=== PATIENT | female | born 1990 | race Caucasian/White ===

== ENCOUNTER → 2017-09-07 14:36 | Outpatient (CLI) | payer SELFPAY ==
[2017-09-07 16:38] LABS: Absolute Lymphocyte Count 2.14 X10^3/ul (0.83-4.51); Absolute Neutrophil Count 5.6 X10^3/uL (2.0-7.7); Basophil# 0.01 X10^3/uL; Basophil% 0.1 % (0-1); Eosinophil# 0.09 X10^3/uL; Eosinophils% 1.1 % (0-5); Hematocrit 36.8 % (37-47); Hemoglobin 12.1 g/dl (12.0-15.0); Lymphocyte # 2.14 X10^3/ul (4.0); Lymphocyte % 25.4 % (19-41); Mean Corp Hgb Conc 32.9 g/gl (32-36); Mean Corpuscular Volume 94.4 fL (81-99); Mean Platelet Vol. 9.8 fl (6.2-12.0); Monocyte# 0.64 X10^3/uL; Monocyte% 7.6 % (0-10); Neutrophil # 5.55 X10^3/uL (2.7-7.7); Neutrophil % 65.8 % (47-70); Platelet Count 307 K/mm3 (150-450); RBC Distribution Width CV 13.2 % (11.6-14.6); RBC Distribution Width SD 45.2 fl (35.1-43.9); White Blood Count 8.4 K/mm3 (4.4-11.0)
[2017-09-07 16:39] LABS: POSITIVE COUNT NO; POSITIVE DIFFERENTIAL NO; POSITIVE MORPHOLOGY NO
[2017-09-07 18:06] LABS: HIV - WCH Non-Reactive (Nonreactive); Rubella IgG 28.2 IU/mL
[2017-09-09 01:51] LABS: Rapid Plasmin Reagin (RPR) NONREACTIVE (NONREACTIVE)
[2017-09-09 11:13] LABS: HEPATITIS B SURFACE AG Negative (Negative)
== END ==
PROVIDERS: Visit Provider Obstetrics & Gynecology
DX: Z34.82 Encounter for supervision of other normal pregnancy, second trimester (principal); Z3A.00 Weeks of gestation of pregnancy not specified
CPT/HCPCS: 36415; 85025; 86592; 86703; 86762; 86850; 86900; 87086; 87340; 87491; 87591

== ENCOUNTER → 2017-09-07 19:01 | Outpatient (CLI) | payer SELFPAY ==
[2017-09-07 20:46] LABS: Chlamydia Trachomatis by PCR Negative (Negative); Neisserai gonorrhoeae by PCR Negative (Negative); Probe Check PASS; Sample Adequacy Control PASS; Specimen Processing Control PASS
[2017-09-11 15:36] LABS: HPV Reflexed? NOT INDICATED
== END ==
PROVIDERS: Visit Provider Obstetrics & Gynecology
DX: Z34.82 Encounter for supervision of other normal pregnancy, second trimester (principal); Z12.4 Encounter for screening for malignant neoplasm of cervix; Z3A.00 Weeks of gestation of pregnancy not specified
CPT/HCPCS: 87086; 87088; 87491; 87591; 88175; G0145

== ENCOUNTER → 2017-10-11 12:19 | Outpatient (CLI) | payer SELFPAY ==
--- NOTE | 2017-10-11 12:21 | US_ITS ---
STUDY: SECOND AND THIRD TRIMESTER OBSTETRICAL ULTRASOUND REASON FOR EXAM: Female, 26 years old. Follow-up anatomy. LMP: June 01, 2017 TECHNIQUE: Transabdominal PRIOR ULTRASOUND: None. FINDINGS: There is a single intrauterine fetus. The fetus is in an transverse lie with the head on the maternal left side. There is demonstrated cardiac activity with a heart rate of 163 bpm. There is a normal amniotic fluid volume. The largest amniotic fluid pocket measures 6.8 x 3.2 cm. The amniotic fluid index (VALENTINO) is 12 cm. The placenta is anterior and low lying but not previa in location. There are Grade 1 placental changes. The cervix measures 4.4 cm in length. The bilateral adnexal regions are normal. BIOMETRY: BPD: 4: 18 weeks, 2 days HC: 15.8: 18 weeks, 5 days AC: 13.1: 18 weeks, 5 days FL: 2.8: 18 weeks, 6 days age by current US: 18 weeks, 5 days. DEREK by current US: March 09, 2018. Estimated weight: 253 grams, +/- 37 grams, 36 %. Age by LMP: 18 weeks, 6 days. DEREK by LMP: March 08, 2018. ANATOMY: Gender: Cranium: Normal lateral ventricles. Normal choroid plexus. Normal cerebellum. Normal cisterna magna. Normal face, nose and lips. Chest: Normal 4-chamber heart. Abdomen/Pelvis: Normal diaphragm. Normal stomach. Normal abdominal wall. Normal cord insertion. Normal 3 vessel cord. Normal kidneys. Normal bladder. Spine: Normal cervical spine. Normal thoracic spine. Normal lumbar spine. Evaluation of the spine is difficult due to previous young age. Extremities: Normal bilateral upper extremities. Normal bilateral lower extremities. US/OB Anatomy Scan IMPRESSION: age by current US: 18 weeks, 5 days. DEREK by current US: March 09, 2018. Estimated weight: 253 grams, +/- 37 grams, 36 %. The placenta is low lying. Follow-up is recommended. Electronically Signed: Chase Colin MD at 13:10 EDT Tel , Service support ,
== END ==
PROVIDERS: Nurse Practitioner Women's Health; Visit Provider Obstetrics & Gynecology
DX: Z34.90 Encounter for supervision of normal pregnancy, unspecified, unspecified trimester (principal); Z3A.18 18 weeks gestation of pregnancy; Z84.89 Family history of other specified conditions
CPT/HCPCS: 76805

== ENCOUNTER → 2017-12-13 09:05 | Outpatient (CLI) | payer SELFPAY ==
[2017-12-13 09:57] LABS: Absolute Lymphocyte Count 1.48 X10^3/ul (0.83-4.51); Absolute Neutrophil Count 5.9 X10^3/uL (2.0-7.7); Basophil# 0.01 X10^3/uL; Basophil% 0.1 % (0-1); Eosinophil# 0.05 X10^3/uL; Eosinophils% 0.6 % (0-5); Hematocrit 31.6 % (37-47); Hemoglobin 10.6 g/dl (12.0-15.0); Lymphocyte # 1.48 X10^3/ul (4.0); Lymphocyte % 18.7 % (19-41); Mean Corp Hgb Conc 33.5 g/gl (32-36); Mean Corpuscular Volume 95.5 fL (81-99); Mean Platelet Vol. 9.5 fl (6.2-12.0); Monocyte# 0.45 X10^3/uL; Monocyte% 5.7 % (0-10); Neutrophil # 5.93 X10^3/uL (2.7-7.7); Neutrophil % 74.8 % (47-70); POSITIVE COUNT NO; POSITIVE DIFFERENTIAL NO; POSITIVE MORPHOLOGY NO; Platelet Count 253 K/mm3 (150-450); RBC Distribution Width CV 13.3 % (11.6-14.6); RBC Distribution Width SD 44.4 fl (35.1-43.9); Red Blood Count 3.31 M/mm3 (4.2-5.4); White Blood Count 7.9 K/mm3 (4.4-11.0)
[2017-12-13 10:41] LABS: Glucose Challenge Gest 1H 50g 142 mg/dL (70-140)
== END ==
PROVIDERS: Visit Provider Obstetrics & Gynecology
DX: Z34.82 Encounter for supervision of other normal pregnancy, second trimester (principal)
CPT/HCPCS: 36415; 82950; 85025

== ENCOUNTER → 2017-12-27 08:17 | Outpatient (CLI) | payer SELFPAY ==
--- NOTE | 2017-12-27 08:17 | DT_ITS ---
This patient was seen during an EMR downtime December 24, 2017 - December 31, 2017. This patient may have a combination of paper and electronic documentation or all paper documentation. All documentation is viewable within the e-chart portion of [employer] for each patient visit.
--- NOTE | 2017-12-27 08:19 | US_ITS ---
STUDY: SECOND AND THIRD TRIMESTER OBSTETRICAL ULTRASOUND - LIMITED REASON FOR EXAM: Female, 27 years old. History of low lying placenta LMP: 06/01/2017 PRIOR ULTRASOUND: 10/11/2017 TECHNIQUE: Transabdominal and transvaginal ultrasound evaluation was performed. FINDINGS: There is a single intrauterine fetus. The fetus is in a cephalic presentation. There is demonstrated cardiac activity with a heart rate of 153 bpm. There is a normal amniotic fluid volume. The largest amniotic fluid pocket measures 4.1 cm. The amniotic fluid index (VALENTINO) is 11.7 cm. The placenta is anterior in location. Previous study showed placenta previa. This has resolved. On today's study, the placenta is 5.9 cm away from the os. There is no sonographic evidence of placenta accreta. There are Grade 1 placental changes. The cervix measures 3.6 cm in length. BIOMETRY: BPD: 7.35 cm: 29 weeks, 4 days HC: 28.12 cm: 30 weeks, 6 days AC: 25.86 cm: 30 weeks, 1 days FL: 5.55 cm: 29 weeks, 2 days Age by LMP: 29 weeks, 6 days. DEREK by LMP: 03/08/2018. age by prior US: 18 weeks, 5 days. DEREK by prior US: 03/09/2018. age by current US: 30 weeks, 0 days. DEREK by current US: 03/07/2018. Estimated weight: 1458 grams, +/- 213 grams, 35 percentile. Gender: Indeterminant US/OB Limited With Biometrics IMPRESSION: Single live intrauterine at 30 weeks, 0 days by current ultrasound with DEREK of 03/07/2018. Heart rate of 153 bpm. No suspicious sonographic findings. Previously noted placenta previa has resolved. There is now 5.9 cm between the placenta edge and the internal os. Electronically Signed: Maicol Mao MD at 8:07 EDT , Service support ,
== END ==
PROVIDERS: Visit Provider Obstetrics & Gynecology
DX: Z34.82 Encounter for supervision of other normal pregnancy, second trimester (principal)
CPT/HCPCS: 76816

== ENCOUNTER → 2018-02-12 18:41 | Outpatient (CLI) | payer SELFPAY ==
[2018-02-12 20:04] LABS: Group B Strep DNA By PCR Negative (Negative); Internal Control PASS; Probe Check PASS; Specimen Processing Control PASS
== END ==
PROVIDERS: Visit Provider Obstetrics & Gynecology
DX: Z34.90 Encounter for supervision of normal pregnancy, unspecified, unspecified trimester (principal)
CPT/HCPCS: 87081; 87653

== ENCOUNTER 2018-02-22 05:00 | Outpatient (CLI) | payer SELFPAY ==
[2018-02-22 05:40] VITALS: BMI 31.8
[2018-02-22 06:50] VITALS: RESP 18
--- NOTE | 2018-02-22 23:00 | OB.TRI.NOTE ---
- Problem List (1) 38 weeks gestation of Status: Acute (2) False labor after 37 completed weeks of gestation Status: Acute History of Present Illness Date of Service: 02/22/18 Was patient seen by the physician?: No Reason For Visit: R/O LABOR Final DEREK: 03/08/18 Final DEREK Source: US <20 weeks Gestational age: 38 weeks 0 days History of Present Illness: 27yo at 38 wga h/o prior section c/o contractions. Allergies No Known Allergies Allergy (Verified 02/25/18 09:35) - Pertinent Past Medical History Surgical History: Past Surgical History (Last Reviewed 02/25/18 @ 09:35 by Trinidad Das) History of delivery History of tonsillectomy Physical Exam Vitals: Vital Signs Resp 18 02/22/18 06:50 Cervix Dilation (cm): 1 - 1-2cm per RN exam R [place]: -3 Effacement (%): 50 NST - FHR Rate Baby A Baseline: 140 Variability:: Moderate Decelerations:: None, Late NST Reactive:: Yes FHR Category:: Category I Uterine Activity:: 2/10 min Impression/Plan 27yo @ 38wga with false labor, Cat I FHR -SVE 1-2cm/50/-3 x 2 -Plan for d/c home
== END 2018-02-22 06:50 | disposition home or self-care (01) ==
LOC: WPOUT 05:31 → WP 05:50
PROVIDERS: Visit Provider Obstetrics & Gynecology
DX: O47.1 False labor at or after 37 completed weeks of gestation (principal); Z3A.38 38 weeks gestation of pregnancy
CPT/HCPCS: 59025; 59050; 99218; G0378

== ENCOUNTER 2018-02-25 12:00 | Inpatient (IN) | payer SELFPAY ==
[2018-02-25 11:47] VITALS: BMI 32.5
[2018-02-25] MEDS: Lactated Ringers 1,000 ML 50 ML IV ×2 (12:00→16:38)
[2018-02-25 13:08] LABS: Hematocrit 37.6 % (37-47); Hemoglobin 12.4 g/dl (12.0-15.0); Mean Corpuscular Hgb 30.9 pg (27.0-32.0); Mean Corpuscular Volume 93.8 fL (81-99); Mean Platelet Vol. 9.4 fl (6.2-12.0); Platelet Count 248 K/mm3 (150-450); RBC Distribution Width CV 14.4 % (11.6-14.6); Red Blood Count 4.01 M/mm3 (4.2-5.4); White Blood Count 7.7 K/mm3 (4.4-11.0)
[2018-02-25 13:13] LABS: Scan Indicated on CBC? Y/N NO
--- NOTE | 2018-02-25 16:58 | NURSING ---
updated at this time, she ok for pt to use nitrous oxide via mask.
--- NOTE | 2018-02-25 17:55 | PCM.HP.OB ---
- Problem List (1) Status: Acute Qualifiers: Comment: History : 3 Elective abortions: Hx Para: 2 Spontaneous abortions: Hx # Term Pregnancies: 2 Ectopic pregnancies: Hx # Pregnancies: Multiple births: : # of living children: 2 Past Pregnancies 04/03/2013 Manoj 40 live - full term 6 lbs 14 oz Female 32 hrs [facility] Jonathan 12/14/15 Massimo 41 Male 14 hrs [facility] Jonathan (2) Abnormal glucose in , antepartum Status: Acute Comment: 3 hour gtt refused. She is doing FBS and 2 hr PP glucose each day. (3) Anemia during in third trimester Status: Acute Comment: iron (4) Depression affecting Status: Acute Comment: zoloft 50 mg (5) Supervision of normal Status: Acute Qualifiers: Comment: PRR DEREK 03/08/18 PC Leonidas Elias Delphine; Girl (6) Late care Status: Acute Comment: 14 weeks first visit, DEREK based on US at that visit (7) History of prior with IUGR Status: Acute Comment: growth us third trimester (8) History of delivery, currently Status: Acute Comment: h/o x 1, plans again, consent signed History Date of Admission: 02/25/18 Final DEREK: 03/08/18 Gestational age: 38 Weeks and 3 Days History of this : This is a 27 year-old, , at 38 weeks gestational age presents IAL. she desires a TOLAC. she has had an uncomplicated Surgical History: Surgical History (Last Reviewed 02/25/18 @ 09:35 by Trinidad Das) History of delivery Z98.891 History of tonsillectomy Z98.890, Z90.89 Allergies No Known Allergies Allergy (Verified 02/25/18 09:35) Home Medications: Home Medications vitamin,calcium,ljmzznvk-ueur-crnzc acid tablet 1 tab PO QDAY 09/07/17 sertraline 25 mg tablet 25 mg PO QDAY #30 tab 10/11/17 Smoking Status: Never smoker Alcohol: None Number of Fetus(es): 1 Heart Tracin moderate variability reactive no decels TOCO Analysis: q3-5 History Past Pregnancies: Past PregnanciesPregnancy History : 3 Elective abortions: Hx Para: 2 Spontaneous abortions: Hx # Term Pregnancies: 2 Ectopic pregnancies: Hx # Pregnancies: Multiple births: : # of living children: 2 Past Pregnancies 04/03/2013 Manoj 40 live - full term cs 6 lbs 14 oz Female 32 hrs [facility] Jonathan 12/14/15 Massimo 41 Male 14 hrs [facility] Jonathan Labs: Mom's Labs & Results 02/25/18 02/25/18 12:55 12:55 WBC 7.7 RBC 4.01 L Hgb 12.4 Hct 37.6 MCV 93.8 MCH 30.9 MCHC 33.0 RDW 14.4 RDW Differential 49.0 H Plt Count 248 MPV 9.4 Blood Type O POSITIVE Antibody Screen NEGATIVE Course Did the patient receive Yes care? Labs Blood Type: O RH: POSITIVE RPR/VDRL/Syphilis Nonreactive Rubella status Immune HbSAg Negative Date Done: 09/07/17 Chlamydia Negative Gonorrhea Negative HIV/AIDS Non-Reactive Group B Strep: Negative Current Obstetrical History Gestational Diabetes No Incompetent Cervix No Infertility No IUGR No Macrosomia No Hypertension/Pre-eclampsia No Placenta Previa/Abruption No PTL/PROM No Uterine anomaly No Oligohydramnios No Polyhydramnios No Multiple gestation No Past Medical History Asthma No Diabetes No Hypertension No Heart disease No Mitral valve prolapse No Neurologic/Seizure disorder/ No Migraines Kidney disease No Liver disease No Varicosities No Clotting disorders/Hx of DVT No Thyroid Dysfunction No Other medical diseases No Psychiatric disorders Yes: hx depression Major trauma No Abnormal PAP smear No Sleep apnea No Mammogram in the last 2 years No Social History Marital Status: Alleged father Delphine Hx Smoking No Smoking Status Never smoker Expected Delivery Method: Review of Systems Constitutional: Denies: Fever, Malaise Eyes: Denies: Blurred vision, Vision Change HEENT: Denies: Head Aches, Visual Changes Cardiovascular: Denies: Chest Pain, Palpitations Respiratory: Denies: Cough, Shortness of Breath, Wheezing Gastrointestinal: Denies: Abdominal Pain, Diarrhea, Nausea, Vomiting Genitourinary: Denies: Dysuria, Hematuria Musculoskeletal: Denies: Joint Pain, Muscle pain Skin: Denies: Lesions, Rash Neurological: Denies: Blurred vision, Focal weakness, Headaches Psychiatric: Denies: Anxiety, Depression Endocrine: Denies: Heat/ Cold Intolerance Hematologic/ Lymphatic: Denies: Easy Bruising, Easy Bleeding Physical Exam General: Alert, Cooperative, No apparent distress HEENT: Atraumatic, Normocephalic. Negative for: Thyromegaly, Lymphadenopathy Cardiovascular: Regular rate Lungs: Normal air movement Abdomen: Soft, Non Tender, Gravid Neurological: Deep Tendon Reflexes 2+/4 and Symmetrical, Neuro grossly intact. Negative for: Clonus TRAILER CHIEF: Normal external genitalia. Negative for: Vulvar lesions Estimated gestational size: Appropriate for gestational size Presentation: Cephalic Cervix Dilation (cm): 5 Assessment/Plan All Active Problems (Last Reviewed 02/25/18 @ 09:35 by Trinidad Das) (Acute) Abnormal glucose in , antepartum (Acute) Anemia during in third trimester (Acute) Depression affecting (Acute) Supervision of normal (Acute) Late care (Acute) History of prior with IUGR (Acute) History of delivery, currently (Acute) Family history of genetic disease (Acute) Low-lying placenta in second trimester (Resolved) This is a 27 year-old, , at 38 weeks gestational age IAL plans TOLAC previous x 1- plans tolac again epi PRN gbs neg
--- NOTE | 2018-02-25 18:00 | HP.PCM_ITS ---
- Problem List (1) Status: Acute Qualifiers: Comment: History : 3 Elective abortions: Hx Para: 2 Spontaneous abortions: Hx # Term Pregnancies: 2 Ectopic pregnancies: Hx # Pregnancies: Multiple births: : # of living children: 2 Past Pregnancies 04/03/2013 Manoj 40 live - full term 6 lbs 14 oz Female 32 hrs [facility] Jonathan 12/14/15 Massimo 41 Male 14 hrs [facility] Jonathan (2) Abnormal glucose in , antepartum Status: Acute Comment: 3 hour gtt refused. She is doing FBS and 2 hr PP glucose each day. (3) Anemia during in third trimester Status: Acute Comment: iron (4) Depression affecting Status: Acute Comment: zoloft 50 mg (5) Supervision of normal Status: Acute Qualifiers: Comment: PRR DEREK 03/08/18 PC Leonidas Elias Delphine; Girl (6) Late care Status: Acute Comment: 14 weeks first visit, DEREK based on US at that visit (7) History of prior with IUGR Status: Acute Comment: growth us third trimester (8) History of delivery, currently Status: Acute Comment: h/o x 1, plans again, consent signed History Date of Admission: 02/25/18 Final DEREK: 03/08/18 Gestational age: 38 Weeks and 3 Days History of this : This is a 27 year-old, , at 38 weeks gestational age presents IAL. she desires a TOLAC. she has had an uncomplicated Surgical History: Surgical History (Last Reviewed 02/25/18 @ 09:35 by Trinidad Das) History of delivery Z98.891 History of tonsillectomy Z98.890, Z90.89 Allergies No Known Allergies Allergy (Verified 02/25/18 09:35) Home Medications: Home Medications vitamin,calcium,kenadyrj-bqbs-oatwy acid tablet 1 tab PO QDAY 09/07/17 sertraline 25 mg tablet 25 mg PO QDAY #30 tab 10/11/17 Smoking Status: Never smoker Alcohol: None Number of Fetus(es): 1 Heart Tracin moderate variability reactive no decels TOCO Analysis: q3-5 History Past Pregnancies: Past PregnanciesPregnancy History : 3 Elective abortions: Hx Para: 2 Spontaneous abortions: Hx # Term Pregnancies: 2 Ectopic pregnancies: Hx # Pregnancies: Multiple births: : # of living children: 2 Past Pregnancies 04/03/2013 Manoj 40 live - full term cs 6 lbs 14 oz Female 32 hrs [facility] Jonathan 12/14/15 Massimo 41 Male 14 hrs [facility] Jonathan Labs: Mom's Labs & Results 02/25/18 02/25/18 12:55 12:55 WBC 7.7 RBC 4.01 L Hgb 12.4 Hct 37.6 MCV 93.8 MCH 30.9 MCHC 33.0 RDW 14.4 RDW Differential 49.0 H Plt Count 248 MPV 9.4 Blood Type O POSITIVE Antibody Screen NEGATIVE Course Did the patient receive Yes care? Labs Blood Type: O RH: POSITIVE RPR/VDRL/Syphilis Nonreactive Rubella status Immune HbSAg Negative Date Done: 09/07/17 Chlamydia Negative Gonorrhea Negative HIV/AIDS Non-Reactive Group B Strep: Negative Current Obstetrical History Gestational Diabetes No Incompetent Cervix No Infertility No IUGR No Macrosomia No Hypertension/Pre-eclampsia No Placenta Previa/Abruption No PTL/PROM No Uterine anomaly No Oligohydramnios No Polyhydramnios No Multiple gestation No Past Medical History Asthma No Diabetes No Hypertension No Heart disease No Mitral valve prolapse No Neurologic/Seizure disorder/ No Migraines Kidney disease No Liver disease No Varicosities No Clotting disorders/Hx of DVT No Thyroid Dysfunction No Other medical diseases No Psychiatric disorders Yes: hx depression Major trauma No Abnormal PAP smear No Sleep apnea No Mammogram in the last 2 years No Social History Marital Status: Alleged father Delphine Hx Smoking No Smoking Status Never smoker Expected Delivery Method: Review of Systems Constitutional: Denies: Fever, Malaise Eyes: Denies: Blurred vision, Vision Change HEENT: Denies: Head Aches, Visual Changes Cardiovascular: Denies: Chest Pain, Palpitations Respiratory: Denies: Cough, Shortness of Breath, Wheezing Gastrointestinal: Denies: Abdominal Pain, Diarrhea, Nausea, Vomiting Genitourinary: Denies: Dysuria, Hematuria Musculoskeletal: Denies: Joint Pain, Muscle pain Skin: Denies: Lesions, Rash Neurological: Denies: Blurred vision, Focal weakness, Headaches Psychiatric: Denies: Anxiety, Depression Endocrine: Denies: Heat/ Cold Intolerance Hematologic/ Lymphatic: Denies: Easy Bruising, Easy Bleeding Physical Exam General: Alert, Cooperative, No apparent distress HEENT: Atraumatic, Normocephalic. Negative for: Thyromegaly, Lymphadenopathy Cardiovascular: Regular rate Lungs: Normal air movement Abdomen: Soft, Non Tender, Gravid Neurological: Deep Tendon Reflexes 2+/4 and Symmetrical, Neuro grossly intact. Negative for: Clonus MATERIAL RECLAIMER: Normal external genitalia. Negative for: Vulvar lesions Estimated gestational size: Appropriate for gestational size Presentation: Cephalic Cervix Dilation (cm): 5 Assessment/Plan All Active Problems (Last Reviewed 02/25/18 @ 09:35 by Trinidad Das) (Acute) Abnormal glucose in , antepartum (Acute) Anemia during in third trimester (Acute) Depression affecting (Acute) Supervision of normal (Acute) Late care (Acute) History of prior with IUGR (Acute) History of delivery, currently (Acute) Family history of genetic disease (Acute) Low-lying placenta in second trimester (Resolved) This is a 27 year-old, , at 38 weeks gestational age IAL plans TOLAC previous x 1- plans tolac again epi PRN gbs neg
[2018-02-25] MEDS: Oxytocin 30 units/NS 500 ml 30 UNITS/500 ML IV.SOLN 334 UNITS IV (18:11)
[2018-02-25] MEDS: Acetaminophen 500 MG Tablet PO (18:30)
[2018-02-25] MEDS: Oxytocin 30 units/NS 500 ml 30 UNITS/500 ML IV.SOLN 167 UNITS IV (18:44)
--- NOTE | 2018-02-25 18:44 | PCM.OB.VAG ---
- Problem List (1) Status: Acute Qualifiers: Comment: History : 3 Elective abortions: Hx Para: 2 Spontaneous abortions: Hx # Term Pregnancies: 2 Ectopic pregnancies: Hx # Pregnancies: Multiple births: : # of living children: 2 Past Pregnancies 04/03/2013 Manoj 40 live - full term 6 lbs 14 oz Female 32 hrs [facility] 12/14/15 Massimo 41 Male 14 hrs [facility] (2) Abnormal glucose in , antepartum Status: Acute Comment: 3 hour gtt refused. She is doing FBS and 2 hr PP glucose each day. (3) Anemia during in third trimester Status: Acute Comment: iron (4) Depression affecting Status: Acute Comment: zoloft 50 mg (5) Supervision of normal Status: Acute Qualifiers: Comment: PRR DEREK 03/08/18 PC CurtDayanemily Delphine; Girl (6) Late care Status: Acute Comment: 14 weeks first visit, DEREK based on US at that visit (7) History of prior with IUGR Status: Acute Comment: growth us third trimester (8) History of delivery, currently Status: Acute Comment: h/o x 1, plans again, consent signed Vaginal Delivery Maternal Presentation: Active Labor ial 38 weeks Amniotic Membrane Rupture Type: Artificial Amniotic Fluid Description: Clear Final DEREK: 03/08/18 Gestational age: 38 Weeks and 3 Days Date of Procedure: 02/25/18 Pre-Operative Diagnosis: ial Post-Operative Diagnosis: same Surgery/ Procedure Performed: Spontaneous Vaginal Delivery Type of Anesthesia: None, Local with 1% lidocaine Description of Procedure: Patient began pushing and delivered the head in the ABRAHAM presentation. The head was delivered atraumatically and the loose nuchal cord ?1 was identified and the was delivered through the cord.. The anterior and posterior shoulders delivered without complication followed by the rest of the and the was placed on the maternal abdomen. Delayed cord clamping was employed for approximately 60 seconds. Cord was clamped and cut and gentle traction was applied to the cord and the placenta delivered spontaneously immediately following it was noted to be intact with three-vessel cord. The perineum and vagina were inspected and noted to have a small first-degree perineal laceration that was numbed with 1% lidocaine and repaired with a 3-0 Vicryl repeat stitch. EBL was 100 cc. Patient and infant tolerated delivery well. Presentation: ABRAHAM Placental Delivery Description: Spontaneous Placenta Disposition: [facility] Cord Vessel Description: 3 Vessels Cord Entanglement: Around neck x 1, loose Drain: Ledesma to straight drain Estimated Blood Loss: 100 A gender: Female Episiotomy Description: None Laceration: Perineal Extension/lac, 1st degree Medications given after delivery: IV Pitocin Complications: None
[2018-02-25] MEDS: Ibuprofen 600 MG Tablet PO (23:12)
[2018-02-25 23:20] VITALS: BP 111/71; PULSE 92; RESP 18; TEMP 36; O2SAT 95
[2018-02-26] MEDS: Acetaminophen 500 MG Tablet PO ×3 (02:45→19:49)
[2018-02-26 04:00] VITALS: BP 116/74; PULSE 68; RESP 16; TEMP 37; O2SAT 98
[2018-02-26] MEDS: Ibuprofen 600 MG Tablet PO ×2 (07:28→14:44)
[2018-02-26 07:33] VITALS: BP 112/76; PULSE 73; RESP 16; TEMP 36.5; O2SAT 97
--- NOTE | 2018-02-26 08:12 | PCM.PN.OB ---
Subjective: No CP, SOB. Doing well. Pain controlled - Physical Exam General: Alert, Oriented x3 Abdomen: Soft, Non Tender, - - FF below U Vital Signs Temp Pulse Resp BP Pulse Ox 97.7 F L 73 16 112/76 97 02/26/18 07:33 02/26/18 07:33 02/26/18 07:33 02/26/18 07:33 02/26/18 07:33 Oxygen Delivery Method Room Air Weight: 201 lb 11.567 oz Body Mass Index (BMI) 32.5 Laboratory Tests Past 24 Hrs 02/25/18 02/25/18 12:55 12:55 WBC 7.7 RBC 4.01 L Hgb 12.4 Hct 37.6 MCV 93.8 MCH 30.9 MCHC 33.0 RDW 14.4 RDW Differential 49.0 H Plt Count 248 MPV 9.4 Blood Type O POSITIVE Antibody Screen NEGATIVE Medical Necessity - Tobacco Use Smoking Status: Never smoker Assessment/Plan All Active Problems (Last Reviewed 02/25/18 @ 09:35 by Trinidad Das) (Acute) Abnormal glucose in , antepartum (Acute) Anemia during in third trimester (Acute) Depression affecting (Acute) Supervision of normal (Acute) Late care (Acute) History of prior with IUGR (Acute) History of delivery, currently (Acute) Family history of genetic disease (Acute) Low-lying placenta in second trimester (Resolved) , PPD #1: Doing well. Routine care. . Home today
--- NOTE | 2018-02-26 08:13 | PCM.DCVAG ---
Additional Instructions: If you experience any of the following, contact your healthcare provider. Bleeding that soaks a pad every hour for 2 hours Fever 100.4 or higher Unrelieved incision or abdominal pain Swelling, redness, discharge or bleeding from your incision or episiotomy site Your incision begins to separate Problems urinating (including inability to urinate or burning while urinating). Visual changes Severe headache Flu-like symptoms Pain or redness in one of both of your breasts Pain, warmth, tenderness or swelling in your legs, especially the calf area Frequent nausea and vomiting Symptoms of depression or anxiety If you experience any of the following, call 911 or go to the nearest Emergency Room. Chest pain Problems breathing Seizure activity Partial or complete paralysis of a body part, slurred speech, weakness or drooping of the face, or a sudden inability to walk or hold your balance Allergies/Adverse Reactions: Allergies No Known Allergies Allergy (Verified 02/25/18 09:35) Medications to take at Discharge vitamin,calcium,xaaashej-yplj-bakhv acid tablet 1 tab PO QDAY 09/07/17 sertraline 25 mg tablet 25 mg PO QDAY #30 tab 10/11/17 Primary Care Physician: Care Physician,No Primary [Primary Care Provider] - Test Results: Test results from this visit will be discussed in further detail at your follow-up appointment, if applicable.
--- NOTE | 2018-02-26 08:15 | DCINST_ITS ---
Additional Instructions: If you experience any of the following, contact your healthcare provider. * Bleeding that soaks a pad every hour for 2 hours * Fever 100.4 or higher * Unrelieved incision or abdominal pain * Swelling, redness, discharge or bleeding from your incision or episiotomy site * Your incision begins to separate * Problems urinating (including inability to urinate or burning while urinating) . * Visual changes * Severe headache * Flu-like symptoms * Pain or redness in one of both of your breasts * Pain, warmth, tenderness or swelling in your legs, especially the calf area * Frequent nausea and vomiting * Symptoms of depression or anxiety If you experience any of the following, call 911 or go to the nearest Emergency Room. * Chest pain * Problems breathing * Seizure activity * Partial or complete paralysis of a body part, slurred speech, weakness or drooping of the face, or a sudden inability to walk or hold your balance Allergies/Adverse Reactions: Allergies No Known Allergies Allergy (Verified 02/25/18 09:35) Medications to take at Discharge vitamin,calcium,dqcpgqev-ijbo-cquqf acid tablet 1 tab PO QDAY 09/07/17 sertraline 25 mg tablet 25 mg PO QDAY #30 tab 10/11/17 Primary Care Physician: Care Physician,No Primary [Primary Care Provider] - Test Results: Test results from this visit will be discussed in further detail at your follow- up appointment, if applicable.
[2018-02-26 11:59] VITALS: BP 122/72; PULSE 83; RESP 16; TEMP 36.6; O2SAT 98
[2018-02-26 16:15] VITALS: BP 116/80; PULSE 83; RESP 16; TEMP 36.8; O2SAT 98
[2018-02-26 19:40] VITALS: BP 133/78; PULSE 86; RESP 18; TEMP 37.1
--- NOTE | 2018-03-05 16:31 | NURSING ---
follow up phone call. baby nursing well and gaining weight . mother doing well. mentioned Gaib was great as her labor nurse
== END 2018-02-26 21:40 | disposition home or self-care (01) | DRG 775 ==
LOC: WPOUT 12:08
PROVIDERS: Admitting Provider Obstetrics & Gynecology; Visit Provider Obstetrics & Gynecology
DX: O34.219 Maternal care for unspecified type scar from previous cesarean delivery (principal); O36.5930 Maternal care for other known or suspected poor fetal growth, third trimester, not applicable or unspecified; O99.02 Anemia complicating childbirth; O69.81X0 Labor and delivery complicated by cord around neck, without compression, not applicable or unspecified; O70.0 First degree perineal laceration during delivery; O99.344 Other mental disorders complicating childbirth; F32.9 Major depressive disorder, single episode, unspecified; Z79.899 Other long term (current) drug therapy; Z3A.38 38 weeks gestation of pregnancy; Z37.0 Single live birth
CPT/HCPCS: 59025; 59050; 85027; 86850; 86900; 99218; J7120; G0378

== ENCOUNTER → 2020-02-05 12:34 | Outpatient (CLI) | payer SELFPAY ==
--- NOTE | 2020-02-05 12:36 | US_ITS ---
STUDY: FIRST TRIMESTER OBSTETRICAL ULTRASOUND REASON FOR EXAM: Female, 29 years old bleeding w/early preg LMP: December 24, 2019. TECHNIQUE: Transvaginal TECHNICAL QUALITY: Adequate. PRIOR ULTRASOUND: None. FINDINGS: There is visualization of a single gestational sac in a normal intrauterine position. The mean sac diameter (MSD) measures 1.03 cm, indicating an estimated gestational age (EGA) of 5 weeks, 5 days. The gestational sac shape is elongated.. There is no demonstrated yolk sac. The placenta is non-visualized. There is visualization of a live embryo. The crown-rump length (CRL) measures 0.94 cm, indicating an estimated gestational age (EGA) of 7 weeks, 0 days. There is no demonstrated cardiac activity . The estimated gestation age (EGA) by LMP is 6 weeks, 1 days. The estimated date of delivery (DEREK) by LMP is September 29, 2020. The estimated gestation age (EGA) by US is 6 weeks, 3 days. The estimated date of delivery (DEREK) by US is September 27, 2020. The uterus measures 9.2 cm x 6.6 cm x 5.0 cm. There is no demonstrated uterine fibroid. The cervix is closed. The right ovary measures 3.9 cm x 2.9 cm x 2.7 cm. There is no right ovarian cyst. There is no visualized right adnexal mass or complex lesion. The left ovary measures 3.7 cm x 2.8 cm x 3.1 cm. There is no left ovarian cyst. There is no visualized left adnexal mass or complex lesion. There is no fluid in the cul de sac. US/Init OB < 14Wks US IMPRESSION: Intrauterine gestation with a mean gestational age of 6 weeks and 3 days. No cardiac activity is seen at this time. Follow-up is recommended. Electronically Signed: Dilip Woodward, at 13:42 EDT , Service support ,
== END ==
PROVIDERS: Referring Provider Obstetrics & Gynecology; Visit Provider Obstetrics & Gynecology
DX: O20.0 Threatened abortion (principal); Z3A.01 Less than 8 weeks gestation of pregnancy
CPT/HCPCS: 76801

== ENCOUNTER → 2020-04-29 16:13 | Outpatient (CLI) | payer SELFPAY ==
[2020-02-11 10:04] VITALS: BMI 28.8
--- NOTE | 2020-04-29 16:16 | US_ITS ---
STUDY: FIRST TRIMESTER OBSTETRICAL ULTRASOUND REASON FOR EXAM: Female, 29 years old SPOTTING AND CRAMPING LMP: 03/16/2020 TECHNIQUE: Transvaginal TECHNICAL QUALITY: Adequate. PRIOR ULTRASOUND: None. FINDINGS: There is no demonstrated intrauterine gestational sac.. The estimated gestation age (EGA) by LMP is 6 weeks, 2 days. The estimated date of delivery (DEREK) by LMP is 12/21/2020. The uterus measures 8.9 x 6.4 x 4.27. There is no demonstrated uterine fibroid. The cervix is closed. The right ovary measures 3.2 x 2.8 x 2.4 cm. There is no right ovarian cyst. There is no visualized right adnexal mass or complex lesion. The left ovary measures 3.3 x 1.9 x 1.7 cm. There is no left ovarian cyst. There is no visualized left adnexal mass or complex lesion. There is no fluid in the cul de sac. US/Init OB < 14Wks US IMPRESSION: Normal pelvic ultrasound without an intrauterine gestational sac. Differential diagnosis includes an early intrauterine , early ectopic , or missed . Correlation with serial beta-hCG measurements is recommended. Electronically Signed: Tarik Villa MD at 17:00 EDT Tel , Service support ,
== END ==
PROVIDERS: Referring Provider Obstetrics & Gynecology; Visit Provider Obstetrics & Gynecology
DX: O20.0 Threatened abortion (principal)
CPT/HCPCS: 76801

== ENCOUNTER → 2021-06-13 14:05 | Outpatient (CLI) | payer SELFPAY ==
[2021-06-13 15:21] LABS: Thyroid Stim Hormone (TSH) 2.05 uIU/mL (0.358-3.74)
[2021-06-13 15:27] LABS: Hemoglobin A1c 4.8 % (3.8-5.6)
[2021-06-13 15:42] LABS: hCG Titer Quant., Serum 2611 mIU/mL (1-3)
[2021-06-17 22:18] LABS: Anti-Cardiolipin Ab, IgA, Qn < 9 APL U/mL (0-11); Anti-Cardiolipin Ab, IgG, Qn < 9 GPL U/mL (0-14); Anti-Cardiolipin Ab, IgM, Qn < 9 MPL U/mL (0-12); Beta-2-Glycoprotein I IgA <9 (0-25); Beta-2-Glycoprotein I IgG <9 (0-20); Beta-2-Glycoprotein I IgM <9 (0-32)
== END ==
PROVIDERS: Referring Provider Obstetrics & Gynecology; Visit Provider Obstetrics & Gynecology
DX: N96 Recurrent pregnancy loss (principal); O03.4 Incomplete spontaneous abortion without complication
CPT/HCPCS: 36415; 83036; 84443; 84702; 86146; 86147

== ENCOUNTER → 2021-11-22 | Outpatient (CLI) | payer SELFPAY ==
[2021-11-28 17:16] LABS: HPV APTIMA, High Risk Negative (Negative)
== END | disposition home or self-care (01) ==
LOC: LABSPEC 16:30
PROVIDERS: Referring Provider Obstetrics & Gynecology; Visit Provider Obstetrics & Gynecology
DX: Z34.90 Encounter for supervision of normal pregnancy, unspecified, unspecified trimester (principal)
CPT/HCPCS: 87086; 87088; 87624; 88175; G0145